=== PATIENT | female | born 1995 | race Caucasian/White ===

== ENCOUNTER → 2020-11-13 | Outpatient (CLI) | payer OTHER ==
[~2020-11-13] MED LIST: AMOXICILLIN500 MG PO; CEFUROXIME500 MG PO; CLEOCIN HCL300 MG PO; IBUPROFEN600 MG PO; Viscous lidocaine2% TOP; ZOFRAN4 MG PO; ZYRTEC10 M3 PO
== END ==
LOC: KOH-I 15:10
DX: M51.36 Other intervertebral disc degeneration, lumbar region (principal)
CPT/HCPCS: 72148

== ENCOUNTER → 2020-12-31 | Outpatient (CLI) | payer OTHER | LOC: HEART 5 09:38 | DX: Z87.09 Personal history of other diseases of the respiratory system (principal) | CPT/HCPCS: 94010 ==

== ENCOUNTER 2021-12-14 14:38 | Emergency (ER) | payer OTHER ==
[2021-12-14] MEDS ORDERED: IMITREX50 MG PO (20:52)
[2021-12-14] MEDS ORDERED: CEPHALEXIN500 M1 PO (20:52)
[2021-12-14] MEDS ORDERED: ONDANSETRON ODT4 MG SL (20:52)
== END 2021-12-14 21:00 | disposition home or self-care (01) ==
LOC: ER1 14:38
DX: G43.909 Migraine, unspecified, not intractable, without status migrainosus (principal); N39.0 Urinary tract infection, site not specified; J45.909 Unspecified asthma, uncomplicated; F17.200 Nicotine dependence, unspecified, uncomplicated
CPT/HCPCS: 81001; 84703; 87086; 96372; 96374; 96375; 99284; J1200; J1885; J2765; J3030

== ENCOUNTER 2021-12-31 22:32 | Emergency (ER) | payer OTHER ==
[~2021-12-31 22:32] MED LIST changes: +CEPHALEXIN500 M1 PO; +IMITREX50 MG PO; +ONDANSETRON ODT4 MG SL
[2022-01-01] MEDS ORDERED: PAXLOVID CO-PA1 EACH PO (01:28)
== END 2022-01-01 01:35 | disposition home or self-care (01) ==
LOC: ER1 22:32
DX: U07.1 COVID-19 (principal)
CPT/HCPCS: 0240U; 99283